=== PATIENT | female | born 1975 | race African-American/Black ===

== ENCOUNTER 2016-09-23 13:57 | Emergency (ER) | payer MEDICAID ==
[~2016-09-23] VITALS: Ht 167.6 cm; Wt 65.0 kg
[~2016-09-23 13:57] MED LIST: AMLO5 PO; CHOL50006 PO; DIPH2%T PO; IBUP-232 PO; LISI-363 PO; MEDR4PAK3 PO; MONOTAB PO; Z.0.BCPILL PO
[2016-09-23 13:59] VITALS: BP 161/92; PULSE 17; PULSE 78; RESP 16; TEMP 98.2; O2SAT 98
[2016-09-23] MEDS ORDERED: IBUP800T23 PO (14:17)
--- NOTE | 2016-09-23 14:18 | PD ---
HPI Chief Complaint: Cold / Flu Symptoms Time Seen by Provider: 14:13 Travel History International Travel<30 days: No Contact w/Intl Traveler<30days: No Traveled to known affect area: No History of Present Illness HPI Patient is 40-year-old female presenting to the emergency evaluation of nasal congestion on the right side, sore throat, chills, body aches. Patient states her symptoms started today with a sore throat, throughout the day she started experiencing the body aches. Patient has not taken anything for her symptoms. She denies any fevers, chest pain, shortness of breath, cough, pain, nausea, vomiting, diarrhea. PFSH Past Medical History Cardiovascular Problems: Yes Diminished Hearing: No Hypertension: Yes Immunizations Current: Yes ?: Not Social History Alcohol Use: No Tobacco Use: No Substance Use: No Allergies-Medications (Allergen,Severity, Reaction): Coded Allergies: Codeine (Verified Allergy, Severe, "PASS OUT AND N/V", 09/23/16) Lisinopril (Verified Allergy, Severe, 09/23/16) Angioedema Penicillin (Verified Allergy, Severe, 09/23/16) Uncoded Allergies: FLONASE (Allergy, Severe, 04/24/12) Reported Meds & Prescriptions Reported Meds & Active Scripts Active Medrol Dosepak (Methylprednisolone) 4 Mg Jay 4 Mg PO DIRECTED TAKE DIRECTED Norvasc (Amlodipine Besylate) 5 Mg Tab 5 Mg PO DAILY Benadryl (Diphenhydramine HCl) 25 Mg Cap 50 Mg PO Q6 PRN Mononessa (Norgestimate-Ethinyl Estradiol) Tab 1 Tab PO DAILY Motrin (Ibuprofen) 600 Mg Tab 600 Mg PO TID Reported Control Pills (Miscellaneous Medication) Tab 1 Tab PO DAILY Lisinopril 20 Mg Tab 20 Mg PO DAILY Vitamin D (Cholecalciferol) 5,000 Unit Tab 5,000 Unit PO DAILY Review of Systems Except as stated in HPI: all other systems reviewed are Neg General / Constitutional: Positive: Chills, No: Fever HENT: Positive: Sore Throat, Congestion, No: Headaches, Neck Pain Cardiovascular: No: Chest Pain or Discomfort Respiratory: No: Cough, Shortness of Breath Gastrointestinal: No: Nausea, Vomiting, Diarrhea, Abdominal Pain Genitourinary: No: Dysuria Musculoskeletal: Positive: Myalgias Physical Exam Narrative GENERAL: Well-nourished, well-developed patient. SKIN: Focused skin assessment warm/dry. HEAD: Normocephalic. EYES: No scleral icterus. No injection or drainage. ENT: Mucosa pink and moist. No erythema or exudates. No uvular edema. No uvular , palatal, or tonsillar deviation. Airway patent. Nasal turbinates appear normal without nasal blood, purulent drainage or septal hematoma. Posterior pharynx with cobblestoning appearance NECK: Supple, trachea midline. No JVD or lymphadenopathy. CARDIOVASCULAR: Regular rate and rhythm without murmurs, gallops, or rubs. RESPIRATORY: Breath sounds equal bilaterally. No accessory muscle use. No wheezing, rhonchi, rales noted GASTROINTESTINAL: Abdomen soft, non-tender, nondistended. MUSCULOSKELETAL: No cyanosis, or edema. BACK: Nontender without obvious deformity. No CVA tenderness. Data Data Last Documented VS Vital Signs Date Time Temp Pulse Resp B/P Pulse Ox O2 Delivery O2 Flow Rate FiO2 09/23/16 13:59 98.2 78 16 161/92 98 [facility] Medical Decision Making Medical Screen Exam Complete: Yes Emergency Medical Condition: Yes Interpretation(s) Vital Signs Date Time Temp Pulse Resp B/P Pulse Ox O2 Delivery O2 Flow Rate FiO2 09/23/16 13:59 98.2 78 16 161/92 98 Differential Diagnosis Viral URI versus strep pharyngitis versus sinusitis versus bronchitis versus other Narrative Course Patient is a 40-year-old female presenting to the emergency department for evaluation of cold and flu symptoms that started this morning. Physical examination appears most consistent with a viral syndrome. Patient declined influenza screen. Patient was encouraged to continue symptom management, ibuprofen or acetaminophen as needed as directed for body aches or fevers, maintain adequate fluid intake, obtain [id number] Mucinex DM and use as directed or similar agent. She was encouraged to follow-up with her primary doctor return to emergency department for any new or worsening symptoms. She verbalized understanding of these instructions. Patient is stable for discharge. Diagnosis Primary Impression: Viral syndrome Referrals: Primary Care Physician Patient Instructions: General Instructions, Viral Syndrome (DC) Additional Instructions: Continue symptomatic management Take ibuprofen or acetaminophen as needed and as directed for body aches or pain or fevers. Obtain [id number] Mucinex DM or similar agents and use as directed Follow-up with your primary doctor Rest, maintain adequate fluid intake Return to emergency department for any new or worsening symptoms Med/Other Pt SpecificInfo: Prescription(s) given Scripts Ibuprofen 800 Mg [id number] Mg PO Q6HR PRN (PAIN) #40 TAB Ref 0 Prov:Susan Rivera 09/23/16 Disposition: 01 DISCHARGE HOME Condition: Stable Susan Rivera Sep 23, 2016 14:18
== END 2016-09-23 14:42 | disposition home or self-care (01) ==
LOC: NETRI 13:57
DX: B34.9 Viral infection, unspecified (principal)
CPT/HCPCS: 99283

== ENCOUNTER 2017-11-26 11:44 | Emergency (ER) | payer BC, MEDICAID ==
[~2017-11-26] VITALS: Ht 170.2 cm; Wt 60.0 kg
[~2017-11-26 11:44] MED LIST changes: +IBUP1TAB7 PO
[2017-11-26] MEDS ORDERED: IOHEXOL 350 MG/ML 10 ML VIAL (for RAD DIAG) IVCONTRAST ONE (11:45)
[2017-11-26 11:52] VITALS: BP 180/100; PULSE 88; RESP 18; TEMP 98.1; O2SAT 98
--- NOTE | 2017-11-26 12:00 | PD ---
HPI Chief Complaint: GI Complaint Time Seen by Provider: 11:59 Travel History International Travel<30 days: No Contact w/Intl Traveler<30days: No Traveled to known affect area: No History of Present Illness HPI 41-year-old female came to the emergency room with history of right lower quadrant pain that started this morning. Patient looks uncomfortable. She says that the pain is slowly progressing. She occasionally gets this pain especially when she is constipated. However she says she has had bowel movement today and yesterday. No history of nausea vomiting. Pain is localized to the right lower quadrant and worse when she stands up or walks. Vital signs are stable. She was at work but given the severity of the pain decided to come to the emergency room. No history of dysuria or hematuria. No history of vaginal discharge. [facility] Past Medical History Narrative Medical List of her past medical, surgical, social and family history reviewed from the nursing note Cardiovascular Problems: Yes Diminished Hearing: No Hypertension: Yes Immunizations Current: Yes ?: Not Social History Alcohol Use: No Tobacco Use: No Substance Use: No Allergies-Medications (Allergen,Severity, Reaction): Coded Allergies: codeine (Unverified Allergy, Severe, "PASS OUT AND N/V", 11/26/17) lisinopril (Unverified Allergy, Severe, 11/26/17) Angioedema penicillin G (Unverified Allergy, Severe, 11/26/17) Uncoded Allergies: FLONASE (Allergy, Severe, 04/24/12) Comments List of her allergies reviewed from the nursing note Reported Meds & Prescriptions Reported Meds & Active Scripts Active Macrobid (Nitrofurantoin Monoh/Nitrofur Macro) 100 Mg Cap 100 Mg PO BID 7 Days Narrative Medication List of her home medications reviewed from the nursing note Review of Systems Except as stated in HPI: all other systems reviewed are Neg Gastrointestinal: Positive: Abdominal Pain Physical Exam Narrative GENERAL: Awake, alert, anxious, moderate distress SKIN: Focused skin assessment warm/dry. HEAD: Atraumatic. Normocephalic. EYES: Pupils equal and round. No scleral icterus. No injection or drainage. ENT: No nasal bleeding or discharge. Mucous membranes pink and moist. NECK: Trachea midline. No JVD. CARDIOVASCULAR: Regular rate and rhythm. No murmur appreciated. RESPIRATORY: No accessory muscle use. Clear to auscultation. Breath sounds equal bilaterally. GASTROINTESTINAL: Abdomen soft, non-tender, nondistended. Hepatic and splenic margins not palpable. MUSCULOSKELETAL: No obvious deformities. No clubbing. No cyanosis. No edema. NEUROLOGICAL: Awake and alert. No obvious cranial nerve deficits. Motor grossly within normal limits. Normal speech. PSYCHIATRIC: Appropriate mood and affect; insight and judgment normal. Data Data Last Documented VS Orders Orders Complete Blood Count With Diff (11/26/17 12:22) Comprehensive Metabolic Panel (11/26/17 12:22) Urinalysis - C+S If Indicated (11/26/17 12:22) Ct Abd/Pel W Iv Contrast(Rout) (11/26/17 12:22) Iv Access Insert/Monitor (11/26/17 12:22) Ecg Monitoring (11/26/17 12:22) Oximetry (11/26/17 12:22) Sodium Chlor 0.9% 1000 Ml Inj (Ns 1000 M (11/26/17 12:22) Sodium Chloride 0.9% Flush (Ns Flush) (11/26/17 12:30) Ketorolac Inj (Toradol Inj) (11/26/17 12:30) Ed Urine Pregnancytest Poc (11/26/17 12:22) Ondansetron Odt (Zofran Odt) (11/26/17 12:30) Oral Contrast - Adult (11/26/17 12:28) Diatrizoate Liq ( Gastroview Liq) (11/26/17 12:46) Urine Culture (11/26/17 12:35) Nitrofurantoin Monohyd Macrocr (Macrobid (11/26/17 13:45) Iohexol 350 Inj (Omnipaque 350 Inj) (11/26/17 11:45) Ed Discharge Order (11/26/17 15:32) Labs Laboratory Tests Test 11/26/17 12:35 11/26/17 12:40 Urine Color YELLOW Urine Turbidity HAZY Urine pH 6.0 Urine Specific [place] 1.032 Urine Protein 30 mg/dL Urine Glucose (UA) NEG mg/dL Urine Ketones NEG mg/dL Urine Occult Blood SMALL Urine Nitrite NEG Urine Bilirubin NEG Urine Urobilinogen LESS THAN 2.0 MG/DL Urine Leukocyte Esterase MOD Urine RBC 8 /hpf Urine WBC 8 /hpf Urine Squamous Epithelial Cells 10 /hpf Urine Bacteria MANY /hpf Urine Mucus FEW /lpf Microscopic Urinalysis Comment CULTURE INDICATED White Blood Count 8.1 TH/MM3 Red Blood Count 5.09 MIL/MM3 Hemoglobin 13.5 GM/DL Hematocrit 41.0 % Mean Corpuscular Volume 80.5 FL Mean Corpuscular Hemoglobin 26.4 PG Mean Corpuscular Hemoglobin Concent 32.8 % Red Cell Distribution Width 19.7 % Platelet Count 268 TH/MM3 Mean Platelet Volume 7.9 FL Neutrophils (%) (Auto) 55.4 % Lymphocytes (%) (Auto) 29.6 % Monocytes (%) (Auto) 7.2 % Eosinophils (%) (Auto) 6.9 % Basophils (%) (Auto) 0.9 % Neutrophils # (Auto) 4.5 TH/MM3 Lymphocytes # (Auto) 2.4 TH/MM3 Monocytes # (Auto) 0.6 TH/MM3 Eosinophils # (Auto) 0.6 TH/MM3 Basophils # (Auto) 0.1 TH/MM3 CBC Comment AUTO DIFF Differential Comment AUTO DIFF CONFIRMED Platelet Estimate NORMAL Platelet Morphology Comment NORMAL Ovalocytes 1+ Acanthocytes OCC Blood Urea Nitrogen 12 MG/DL Creatinine 0.83 MG/DL Random Glucose 91 MG/DL Total Protein 8.0 GM/DL Albumin 4.1 GM/DL Calcium Level 9.1 MG/DL Alkaline Phosphatase 54 U/L Aspartate Amino Transf (AST/SGOT) 19 U/L Alanine Aminotransferase (ALT/SGPT) 17 U/L Total Bilirubin 0.2 MG/DL Sodium Level 138 MEQ/L Potassium Level 4.1 MEQ/L Chloride Level 104 MEQ/L Carbon Dioxide Level 25.7 MEQ/L Anion Gap 8 MEQ/L Estimat Glomerular Filtration Rate 92 ML/MIN [facility] Medical Decision Making Medical Screen Exam Complete: Yes Emergency Medical Condition: Yes Medical Record Reviewed: Yes Differential Diagnosis Acute appendicitis, UTI, ovarian cyst Narrative Course 12:40 PM awaiting for blood test, UA and CAT scan to be done and resulted. Patient is getting pain medication. 3:30 PM blood test results are back and within acceptable limit. UA suggestive of UTI. Patient was given [address] scan is back and has been resulted as uterine fibroid and possible left ovarian cyst but otherwise negative. I will discharge her home with prescriptions. Procedures EKG Prior to Arrival: No Diagnosis Primary Impression: UTI (urinary tract infection) Qualified Codes: N39.0 - Urinary tract infection, site not specified Additional Impressions: Abdominal pain Qualified Codes: R10.31 - Right lower quadrant pain Uterine fibroid Qualified Codes: D25.9 - Leiomyoma of uterus, unspecified Additional Instructions: Follow-up with the [employer] [facility] [facility]CHNICIAN regarding your diagnosis for fibroid as well as left ovarian cyst. Take the medication as per the prescription direction. Return to the ER if condition worsens any other new concerns. Med/Other Pt SpecificInfo: Prescription(s) given Scripts Nitrofurantoin Monohydrate Macrocrystals (Macrobid) 100 Mg Cap 100 MG PO BID for Infection for 7 Days, #14 CAP 0 Refills Prov: Smitha Baker MD 11/26/17 Disposition: 01 DISCHARGE HOME Condition: Stable Smitha Baker MD Nov 26, 2017 11:59
[2017-11-26] MEDS ORDERED: SODIUM CHLOR 0.9% 1000 ML INJ 1,000 ML IV SCH (12:22)
[2017-11-26] MEDS ORDERED: KETOROLAC TROMETHAMINE 30 MG/ML (IVP) VIAL IVP ONE (12:30)
[2017-11-26] MEDS ORDERED: ONDANSETRON ODT 4 MG TAB PO ONE (12:30)
[2017-11-26] MEDS ORDERED: SODIUM CHLORIDE 0.9% FLUSH 10 ML FLUSH IV FLUSH PRN (12:30)
[2017-11-26] MEDS ORDERED: DIATRIZOATE MEGLUM/DIATRIZOATE SOD 9 ML CUP ONE (12:46)
[2017-11-26 12:57] LABS: AUTOMATED NEUTROPHIL # 4.5 TH/MM3 (1.8-7.7); BASOPHIL # 0.1 TH/MM3 (0-0.2); BASOPHIL % 0.9 % (0.0-2.0); EOSINOPHIL # 0.6 TH/MM3 (0-0.4); EOSINOPHIL % 6.9 % (0.0-4.0); HEMOGLOBIN 13.5 GM/DL (11.6-15.3); LYMPH % 29.6 % (9.0-44.0); LYMPHOCYTE # 2.4 TH/MM3 (1.0-4.8); MEAN CELL VOLUME 80.5 FL (80.0-100.0); MEAN CORPUSCULAR HEMOGLOBIN 26.4 PG (27.0-34.0); MEAN CORPUSCULAR HGB CONC 32.8 % (32.0-36.0); MEAN PLATELET VOLUME 7.9 FL (7.0-11.0); MONO % 7.2 % (0.0-8.0); MONOCYTE # 0.6 TH/MM3 (0-0.9); NEUT % 55.4 % (16.0-70.0); PLATELET COUNT 268 TH/MM3 (150-450); RED BLOOD COUNT 5.09 MIL/MM3 (4.00-5.30); RED CELL DISTRIBUTION WIDTH 19.7 % (11.6-17.2); WHITE BLOOD COUNT 8.1 TH/MM3 (4.0-11.0)
[2017-11-26 13:02] LABS: BACTERIA, URINE MANY /hpf; BILIRUBIN, URINE NEG (NEG); BLOOD, URINE SMALL (NEG); GLUCOSE,URINE NEG (NEG); KETONE, URINE NEG (NEG); MUCUS URINE FEW /lpf (OCC); NITRITE,URINE NEG (NEG); SQUAMOUS EPITHELIAL CELL URINE 10 /hpf (0-5); URINE COLOR YELLOW (YELLW/STRAW); URINE LEUKOCYTE ESTERASE MOD (NEG)
[2017-11-26 13:12] LABS: ALT (GPT) 17 U/L (10-53)
[2017-11-26 13:13] LABS: ALKALINE PHOSPHATASE 54 U/L (45-117); TOTAL BILIRUBIN ADULT 0.2 MG/DL (0.2-1.0)
[2017-11-26 13:18] LABS: ALBUMIN 4.1 GM/DL (3.4-5.0); AST (GOT) 19 U/L (15-37); BICARBONATE 25.7 MEQ/L (21.0-32.0); BLOOD UREA NITROGEN 12 MG/DL (7-18); CALCIUM 9.1 MG/DL (8.5-10.1); CHLORIDE 104 MEQ/L (98-107); CREATININE 0.83 MG/DL (0.50-1.00); GLOMERULAR FILTRATION RATE 92 ML/MIN (>89); GLUCOSE,RANDOM 91 MG/DL (74-106); SODIUM (NA) 138 MEQ/L (136-145)
[2017-11-26 13:28] LABS: ACANTHOCYTES OCC (NORMAL); OVALOCYTES 1+ (NORMAL)
[2017-11-26] MEDS ORDERED: NITROFURANTOIN MONOHYD MACROCR 100 MG CAP PO ONE (13:45)
--- NOTE | 2017-11-26 15:25 | RADRPT ---
EXAM DATE: 11/26/2017 3:05 PM EDT AGE/SEX: 41 years / Female INDICATIONS: Right lower quadrant pain with nausea starting in A.M.. CLINICAL DATA: This is the patient's initial encounter. Patient reports that signs and symptoms have been present for 1 day and indicates a pain score of 9/10. MEDICAL/SURGICAL HISTORY: Hypertension. Emphysema. endometriosis None. ORAL CONTRAST: Prescribed oral contrast ingested. RADIATION DOSE: 4.88 CTDI (mGy) COMPARISON: No prior [place] exams available for comparison. TECHNIQUE: Multiple contiguous axial images were obtained through the abdomen and pelvis following b olus infusion of 91 ml Omnipaque 350 (iohexol) nonionic water-soluble contrast as a single exam dos e. Prescribed oral contrast ingested. Using automated exposure control and adjustment of the mA and/ or kV according to patient size, the radiation dose was kept as low as reasonably achievable to obtai n optimal diagnostic quality images. FINDINGS: Lower Lungs: The visualized lower lungs are clear. Liver: The liver has a homogeneous density without space-occupying lesion. There is no dilation of th e biliary tree. Spleen: Homogeneous density without enlargement. Pancreas: Unremarkable without mass or calcification. Kidneys: Normal in size and shape. No evidence of mass or hydronephrosis. Adrenal Glands: Unremarkable. Aorta: The aorta and proximal iliac vessels are grossly unremarkable without aneurysmal dilation. Bowel/Mesentery: The bowel loops are grossly unremarkable. The cecum and sigmoid colon have a normal configuration. Abdominal Wall: Intact. Retroperitoneum: No evidence of adenopathy in the retrocrural, para-aortic, or deep pelvic regions. Bladder: Contours are smooth. Reproductive Organs: Enlarged heterogeneous uterus presumably multiple leiomyoma. 5 cm cyst in left ovary. Prominent right ovarian varices Inguinal: The inguinal region is unremarkable without evidence of adenopathy. Bony Structures: Unremarkable. CONCLUSION: 1. Enlarged heterogeneous uterus consistent with multiple leiomyoma. Probable left ovarian cyst. Res t of the study is unremarkable Electronically signed by: Chava Interiano MD 11/26/2017 3:23 PM EDT
[2017-11-26] MEDS ORDERED: MACR100C2 PO (15:35)
== END 2017-11-26 15:55 | disposition home or self-care (01) ==
LOC: NEPD 11:44
DX: I10 Essential (primary) hypertension (principal); N39.0 Urinary tract infection, site not specified; D25.9 Leiomyoma of uterus, unspecified
CPT/HCPCS: 74177; 80053; 81001; 84703; 85025; 87086; 96361; 96374; 99285; J1885; J7030; Q9963; Q9967

== ENCOUNTER 2018-01-08 06:07 | Observation (INO) ==
[2018-01-08] MEDS ORDERED: Chlorhexidine Gluconate 2% 1 Pack (2 Cloths) TOPICAL SCH (06:45)
[2018-01-08] MEDS ORDERED: Metoprolol Tartrate 25 MG Tablet PO SCH (06:45)
[2018-01-08] MEDS ORDERED: Sodium Chlor 0.9% Inj 500 ML IV.SIG SCH (07:00)
[2018-01-08] MEDS ORDERED: Estrogens Congugated Vag Cream w/app 30 GM Tube VAGINAL ONE (08:01)
[2018-01-08] MEDS ORDERED: Sugammadex Inj 200 MG/2 ML Vial IV.PUSH ONE (13:18)
[2018-01-08] MEDS ORDERED: fentaNYL Citrate Inj 100 MCG/2 ML Ampul ONE (14:19)
[2018-01-08] MEDS ORDERED: *morphine SULFATE 10 MG/ML PERIprocedure ONLY ONE ×2 (14:35→15:02)
[2018-01-08] MEDS ORDERED: Lidocaine PF 1% Inj 5 ML Syringe INFILTRATN ONE (15:14)
[2018-01-08] MEDS ORDERED: Metoprolol Inj 5 MG/5 ML Vial IV.PUSH ONE (15:14)
[2018-01-08] MEDS ORDERED: Phenylephrine/NS 1000 MCG/10ML Syringe IV.PUSH ONE (15:14)
--- NOTE | 2018-01-08 15:30 | MP ---
cc: Aneesh Alberto MD DATE OF OPERATION: 01/08/2018 PREOPERATIVE DIAGNOSES: 1. Menorrhagia. 2. Fibroid uterus. 3. Ovarian cyst. 4. Endometriosis. POSTOPERATIVE DIAGNOSES: 1. Menorrhagia. 2. Fibroid uterus. 3. Ovarian cyst. 4. Endometriosis. 5. Pelvic adhesions. 6. Retroperitoneal fibrosis. 7. Endometrioma of the left ovary. PROCEDURE PERFORMED: Laparoscopic-assisted vaginal hysterectomy, extensive lysis of adhesions, left salpingo-oophorectomy, right salpingectomy, coagulation of 24 spots of endometriosis, bilateral ureterolysis. ANESTHESIA: General endotracheal intubation. SURGEON: MD Remy FINDINGS: Upon entering the abdomen, the uterus was quite large, approximately 8-weeks' size. There was endometriosis in the anterior cul-de-sac, the posterior cul-de-sac, endometrioma of the left ovary and in the pelvic sidewalls up to the abdomen there was endometriosis. The left tube and ovary were stuck against the left pelvic sidewall and the large endometrioma was firmly adhesed to the posterior uterus right around the area of the uterine vessels. The right ovary was fairly normal with a small cyst, which was aspirated and the left tube was normal in length and caliber. There was massive thick scar tissue of the left broad ligament to the left pelvic sidewall involving the ureter. The ureter actually was adhesed to the cervix. This ureter was taken down from the pelvic brim all the way to the bladder to avoid injury. The uterus was large. There were some fibroids present. COMPLICATIONS: A long surgery, 4+ hours, large blood loss, probably 300 mL and massive lysis of adhesions. COUNTS: Correct. ESTIMATED BLOOD LOSS: 300 mL. FLUIDS: Crystalloids. CONDITION: The patient tolerated the procedure well and went to the recovery room in good condition. OPERATIVE PROCEDURE: The patient was taken to the operating room and identified by name band and verbally, given a general anesthetic, carefully placed in dorsal lithotomy position by me and she was prepped and draped in the usual sterile manner for laparoscopic vaginal surgery. Timeout was taken and once in agreement, we proceeded to do an examination under anesthesia. The examination under anesthesia showed a parous cervix with an 8-week sized uterus, which felt fairly mobile. The adnexa were negative for masses. The laparoscopic exam revealed an enlarged uterus with several fibroids, normal fallopian tubes bilaterally. The left ovary was adhesed against the left pelvic sidewall and there was a large 4 cm endometrioma and that was firmly adhesed to the uterus around the uterine artery. The right side had massive adhesions of the broad ligament pulling the ureter medially. These adhesions were thick and that was taken down after the ureter was taken down. There were probably 100 spots of endometriosis, small, 1 mm to 4 or 5 mm. The first order of business at this time was to take the left round ligament down with the harmonic scalpel and we began to create a bladder flap. The right round ligament was difficult to define because of all that scar tissue in that area and we began taking the right fallopian tube from the fimbriated end down through the mesosalpinx and taking down the broad ligament. It was noted at this time that there were some thick adhesions posterior to the broad ligament that was pulling the ureter up very close to the ureters. We then tried to make the bladder flap a little bit more bilateral and we took the bladder down at this time to avoid injury in case we got into the uterine vessels. At this point, the left ovary was firmly adhesed to the pelvic sidewall and there was a large ovarian cyst, probable endometrioma. We began to take this down, but it was clear that the ureter on the left side was in danger. We opened up the peritoneum at probably the level of the infundibulopelvic ligament and identified the ureter and did ureterolysis to allow us to take this ovary out without ureteral damage. At this point, we continued taking down the pelvic adhesions on the left side and left pelvic sidewall and during this dissection, the endometrioma broke and dark, old blood characteristic for endometrioma was noticed. We immediately irrigated this and washed it out. We continued down the broad ligament until the level of the internal cervical os. At this point, we went to the contralateral side and began taking that scar tissue down. At this time, it was evident. We are going to have to do ureterolysis on this side as well. In fact, we lifted up the peritoneum, made a small window and performed ureterolysis on the right side from the pelvic brim all the way into the bladder. Interestingly, the ureter was adhesed to the cervix at that level. We took this down with right angle instrument with good results. Once this had been accomplished, we took the rest of those adhesions down and skeletonized the uterine vessels at the level of the internal cervical os. At this point, we took the uterine vessels bilaterally with the harmonic scalpel and Kleppinger forceps to prevent any bleeding. We took the cardinal ligament down quite a ways and felt that we had got to the paravaginal tissue. At this point, we went below and we did a circumferential incision on the cervix and continued to take bites of the cervix. Something was holding us back; however, and even though we had skeletonized 5 cm of the cervix, we still could not enter the abdomen. At this point, I was not sure why we could not get in and we packed the vagina with a lap sponge and held the cervix with a double-tooth tenaculum and reinflated the abdomen. At this point, it was clear. We took the vaginal cuff at this point with the harmonic scalpel and on the right side and we , there were still some adhesions that was holding the uterus up. We took this down after we had skeletonized the entire ureter on that side and we had kept the ureter well out of harm's way. We thought we may close the cuff laparoscopically; however, we went back down below, put a stitch laterally on both sides and then, under laparoscopic visualization, we did close the cuff because I did not want to hit that left ureter. Once the cuff was closed with 0 Vicryl pop-offs in interrupted fashion, hemostasis of the cuff was excellent. At this point, we went back above and performed a large amount of irrigation in the pelvis and abdomen and suctioned out all the old blood. We had previously removed the right fallopian tube because it kept getting in the way and this was pulled up through the 5 mm trocar without difficulty, although we did need to cut it up somewhat. At this point, the cuff was clean. The ureter was beautiful and well out of any harm's way. We inspected the cuff. It was fairly dry. She did ooze throughout the entire case and we put some Evista cream but there was some oozing. We put some Treasure there to create a more hemostatic area. At this point, everything looked good and we took the Kleppingers out. We coagulated 24 of the largest endometriosis implants that we saw. A lot of the implants were over vital organs and I was not comfortable cauterizing those areas. At this point, we inspected all surgical sites and they were dry. The ureters both looked good and the laparoscope was removed under direct vision. The second and third punctures were used to remove the air and the skin incisions were repaired with a 4-0 Monocryl in a subcuticular fashion. We removed the sponge stick from the vagina and she went to the recovery room in good condition. The surgery took a little over 4 hours to perform with multiple procedures being performed. R. MD MARVIN Polanco/SHORTY , 02:34 PM , 03:29 PM
[2018-01-08] MEDS: Docusate Sodium 100 MG Capsule PO SCH (20:14)
[2018-01-08] MEDS ORDERED: Zolpidem Tartrate 5 MG Tablet PO PRN (21:00)
[2018-01-09] MEDS: Ibuprofen 600 MG Tablet PO PRN ×3 (06:22→18:01)
[2018-01-09 06:30] LABS: Baso % (Auto) 0.3 % (0.0-2.0); Eos # (Auto) 0.1 th/mm3 (0.0-0.4); Eos % (Auto) 0.8 % (0.0-4.0); Hematocrit 22.9 % (35.0-46.0); Lymph # (Auto) 2.3 th/mm3 (1.0-4.8); Lymph % (Auto) 23.8 % (9.0-44.0); Mean Corpuscular HGB Conc 34.8 % (32.0-36.0); Mean Corpuscular Hemoglobin 28.7 pg (27.0-34.0); Mean Corpuscular Volume 82.4 fL (80.0-100.0); Mean Platelet Volume 7.8 fL (7.0-11.0); Mono # (Auto) 0.9 th/mm3 (0.0-0.9); Mono % (Auto) 9.2 % (0.0-8.0); Neut # (Auto) 6.4 th/mm3 (1.8-7.7); Neut % (Auto) 65.9 % (16.0-70.0); Platelet Count 213 th/mm3 (150-450); Red Blood Count 2.78 mil/mm3 (4.00-5.30); Red Cell Distribution Width 13.8 % (11.6-17.2); White Blood Count 9.7 th/mm3 (4.0-11.0)
[2018-01-09 06:55] LABS: Anion Gap 4 meq/L (5-15); Blood Urea Nitrogen 10 mg/dL (7-18); Calcium 7.6 mg/dL (8.5-10.1); Carbon Dioxide 29.4 meq/L (21.0-32.0); Chloride 110 meq/L (98-107); Glomerular Filtration Rate Greater Than 89 mL/min (>89); Glucose,Random 109 mg/dL (74-106); Potassium 4.4 meq/L (3.5-5.1); Sodium 143 meq/L (136-145)
[2018-01-09] MEDS: Docusate Sodium 100 MG Capsule PO SCH ×2 (08:59→20:22)
--- NOTE | 2018-01-09 10:51 | P.PNOB ---
Assessment and Plan (1) Anemia Status: Acute Assessment and plan: hgb 8.0 today, we will repeat CBC in am pt has not been up as of visit, she denies dizziness or SOB while in bed - Postoperative Procedures Operation Date: 01/08/18 08:00 Actual Procedures Side Surgeon p Laparoscopic, Assist Vaginal Hysterectomy, Left salpingectomy and oophorectomy , Right salpingectomy, bilateral ureteral lysis, lysis of adhesions, coag endometriosis Erasto Alberto MD Postoperative day: 1 Postoperative status: doing well Postoperative plan: routine post-op care - Time Spent With Patient Total time spent is greater than 50% in coordination of care (as documented) at patient's floor/unit and/or counseling patient: less than 15 minutes Subjective Interval history: post op day 1 Subjective: patient reports feeling better Physical Exam Vital signs: Temp Pulse Resp BP Pulse Ox 99.2 F 111 H 18 120/63 99 01/09/18 08:00 01/09/18 08:00 01/09/18 08:00 01/09/18 08:00 01/09/18 08:00 - Constitutional no acute distress - Routine Respiratory Exam Present: CTA bilaterally - Routine Abdominal Exam Present: soft Comments: band aides clean and dry - Detailed Neurological Exam: Coma Scale Eye Opening: Spontaneous - Urinary Catheter Management Indwelling Urethral Catheter Cath placed during this visit: yes, but has since been removed by the nurse Insertion date: 01/08/18 Removal date: 01/09/18 Removal time: 06:20 Results - Labs CBC & Chem 7: 01/09/18 05:38 01/09/18 05:38 Labs: Laboratory Results - last 24 hr 01/09/18 01/09/18 05:38 05:38 WBC 9.7 RBC 2.78 L Hgb 8.0 L Hct 22.9 L MCV 82.4 MCH 28.7 MCHC 34.8 RDW 13.8 Plt Count 213 MPV 7.8 Neut % (Auto) 65.9 Lymph % (Auto) 23.8 [place] % (Auto) 9.2 H Eos % (Auto) 0.8 Baso % (Auto) 0.3 Neut # (Auto) 6.4 Lymph # (Auto) 2.3 [place] # (Auto) 0.9 Eos # (Auto) 0.1 Baso # (Auto) 0.0 WBC Differential . Differential Comment Auto diff final Sodium 143 Potassium 4.4 Chloride 110 H Carbon Dioxide 29.4 Anion Gap 4 L BUN 10 Creatinine 0.69 Estimated GFR Greater than 89 Random Glucose 109 H Calcium 7.6 L
[2018-01-09] MEDS: Iron Sucrose Inj 200 MG in Sodium Chlor 0.9% Inj 100 ML IV.SIG SCH (13:36)
[2018-01-10] MEDS: Ibuprofen 600 MG Tablet PO PRN (04:55)
[2018-01-10 06:39] LABS: Mean Corpuscular HGB Conc 33.9 % (32.0-36.0); Mean Corpuscular Hemoglobin 28.3 pg (27.0-34.0); Mean Corpuscular Volume 83.4 fL (80.0-100.0); Mean Platelet Volume 7.8 fL (7.0-11.0); Platelet Count 183 th/mm3 (150-450); White Blood Count 6.9 th/mm3 (4.0-11.0)
[2018-01-10 06:51] LABS: Hemoglobin 6.8 gm/dL (11.6-15.3)
[2018-01-10 07:49] LABS: Hematocrit 21.5 % (35.0-46.0); Hemoglobin 7.2 gm/dL (11.6-15.3)
[2018-01-10] MEDS: Docusate Sodium 100 MG Capsule PO SCH (09:15)
[2018-01-10] MEDS: Iron Sucrose Inj 200 MG in Sodium Chlor 0.9% Inj 100 ML IV.SIG SCH (09:25)
--- NOTE | 2018-01-10 09:59 | P.PNOB ---
Assessment and Plan (1) Anemia Status: Acute Assessment and plan: hgb this am 6.8 with repeat 7.2, pt to receive her 2nd dose of venofer prior to dc, we will follow as outpatient - Postoperative Procedures Operation Date: 01/08/18 08:00 Actual Procedures Side Surgeon p Laparoscopic, Assist Vaginal Hysterectomy, Left salpingectomy and oophorectomy , Right salpingectomy, bilateral ureteral lysis, lysis of adhesions, coag endometriosis Erasto Alberto MD Postoperative status: doing well - Time Spent With Patient Total time spent is greater than 50% in coordination of care (as documented) at patient's floor/unit and/or counseling patient: less than 15 minutes Subjective Interval history: post op day 2 Subjective: patient reports feeling better (denies lightheadedness, dizziness, SOB or chest pain at rest or with ambulation) Physical Exam Vital signs: Temp Pulse Resp BP Pulse Ox 98.6 F 104 H 18 112/69 99 01/10/18 07:47 01/10/18 08:14 01/10/18 07:47 01/10/18 07:47 01/10/18 07:47 - Constitutional no acute distress - Routine Respiratory Exam Present: CTA bilaterally - Routine Cardiovascular Exam Present: RRR - Routine Abdominal Exam Present: soft, normoactive bowel sounds (pt passing gas/no bm yet) - Routine Exam Comments: no vaginal bleeding - Detailed Neurological Exam: Coma Scale Eye Opening: Spontaneous - Urinary Catheter Management Indwelling Urethral Catheter Cath placed during this visit: yes, but has since been removed by the nurse Insertion date: 01/08/18 Removal date: 01/09/18 Removal time: 06:20 Results - Labs CBC & Chem 7: 01/10/18 07:35 01/09/18 05:38 Labs: Laboratory Results - last 24 hr 01/10/18 01/10/18 06:18 07:35 WBC 6.9 RBC 2.40 L Hgb 6.8 L* 7.2 L Hct 20.0 L* 21.5 L MCV 83.4 MCH 28.3 MCHC 33.9 RDW 14.0 Plt Count 183 MPV 7.8
--- NOTE | 2018-01-10 11:28 | P.DS ---
Date of admission: 01/08/18 13:18 Primary care physician: Larry Live DO Attending physician on discharge: dr castañeda Anticipated date of discharge: 01/10/18 Brief History from admission: pt admitted for LAV for dysmenorrhea and menorrhagia DS: Diagnosis - Discharge Diagnosis (1) Anemia Status: Acute (2) Menorrhagia Status: Acute (3) Dysmenorrhea Status: Acute DS: Summary Hospital Course: admission for surgery LAV with Left salpingectomy Left oophorectomy, Right salpingectomy, bilateral ureteral lysis of adhesions, coag of endometriosis anemia-treatment with Venofer routine care - Time Spent with Patient Total time spent providing and/or coordinating discharge services: Exam Vital signs: Vital Signs 01/09/18 12:34 01/09/18 15:30 01/09/18 20:00 Temperature 98.2 F 98.3 F 98.9 F Pulse Rate 113 H 113 H 104 H Respiratory Rate 18 16 18 Blood Pressure 125/57 L 119/62 127/72 Pulse Oximetry 99 97 100 01/09/18 23:31 01/10/18 04:00 01/10/18 07:47 Temperature 98.8 F 99.8 F H 98.6 F Pulse Rate 78 105 H 110 H Respiratory Rate 18 18 18 Blood Pressure 110/58 L 116/69 112/69 Pulse Oximetry 96 99 99 01/10/18 08:14 Temperature Pulse Rate 104 H Respiratory Rate Blood Pressure Pulse Oximetry Intake & Output 01/09/18 01/10/18 01/10/18 18:59 06:59 18:59 Intake Total 1110 / 1110 Output Total 1400 / 1400 Balance -290 / -290 Intake: IV 1110 / 1110 LR 1000 mL Inj 1,000 ML @ 125 1000 / 1000 mls/hr IV.CONT .Q8H BERNADETTE Rx#: [id number] Venofer Inj 200 MG In NS Inj 110 / 110 100 ML @ 110 mls/hr IV.SIG DAILY BERNADETTE Rx#:[id number] Output: Urine 1400 / 1400 Other: # Voids 1 Narrative: see post op note Results Procedures completed during hospitalization: surgery Labs on day of discharge: Labs from last 24 hours 01/10/18 01/10/18 07:35 06:18 WBC 6.9 RBC 2.40 L Hgb 7.2 L 6.8 L* Hct 21.5 L 20.0 L* MCV 83.4 MCH 28.3 MCHC 33.9 RDW 14.0 Plt Count 183 MPV 7.8 Discharge Plan - Discharge Disposition Patient Disposition: 01 Discharge Home - Discharge Condition Condition: Good - Discharge Order Discharge Orders: Discharge Order (Routine); Ordered 01/10/18 Ordered By: Annia Parikh - Discharge Details Anticipated Discharge Date: 01/10/18 - Physicians Team Primary Care Provider: Larry Live Attending Provider: Erasto Castañeda - Rxs /Orders / Referrals /Forms Prescriptions: Continue docusate calcium [Stool Softener] 240 mg Capsule 240 mg PO DAILY oxycodone-acetaminophen [Percocet] 2.5-325 mg Tablet 1 tab PO Q4-6H PRN (Reason: Pain) Discontinued ferrous sulfate 325 mg (65 mg iron) Tablet 325 mg PO DAILY Referrals: Larry Live DO [Primary Care Provider] - See Instructions Erasto Castañeda MD [Physician] - See Instructions (keep already scheduled appt) - Discharge Instructions Additional Instructions: report chest pain, shortness of breath, feeling like you want to pass out - Post Discharge Care Plan Care Plan Goals: Your Health Problems: Goals to Promote Your Health: * To prevent worsening of your condition * To maintain your health at the optimal level Directions to Meet Your Goals: * Take your medications as prescribed * Follow your dietary instruction * Follow activity as directed * Keep your appointments as scheduled * Take your immunizations and boosters as scheduled * If your symptoms worsen call your PCP * If no PCP go to Urgent Care or Emergency Room Smoking is dangerous to your health. Avoid second hand smoke. You may reach the 24-hour crisis hotline for domestic abuse at .
== END 2018-01-10 15:15 | disposition home or self-care (01) ==
LOC: H1EA 06:07 → HOR 06:07 → HSDI 06:07 → H1EA 15:29
PROVIDERS: ADMIT Obstetrics & Gynecology; ATTEND Obstetrics & Gynecology